=== PATIENT | male | born 1955 | race Native Hawaiian/Other Pacific Islander ===

== ENCOUNTER 2017-10-09 19:11 | Emergency (ER) | payer SELFPAY ==
[~2017-10-09] VITALS: Ht 175.3 cm; Wt 78.0 kg
[2017-10-09 19:23] VITALS: BP 139/80; PULSE 109; RESP 16; TEMP 97.9; O2SAT 99
== END 2017-10-09 20:15 | disposition left against medical advice (07) ==
LOC: NED 19:11
DX: Z04.8 Encounter for examination and observation for other specified reasons (principal)
CPT/HCPCS: 99281